=== PATIENT | female | born 2000 | race Caucasian/White ===

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

== ENCOUNTER 2022-01-19 17:14 | Emergency (ER) | payer OTHER ==
[2022-01-19 17:32] VITALS: RESP 18; BMI 32.9
[2022-01-19] MEDS ORDERED: SODIUM CHLORIDE 1,000 ML IV STA (18:29)
[2022-01-19] MEDS ORDERED: ONDANSETRON 4 MG/2 ML VIAL IVPUSH ONE (18:29)
[2022-01-19] MEDS ORDERED: morphine CARPU-JECT 4 MG/1 ML DISP.SYRIN IVPUSH ONE ×2 (18:29→23:16)
[2022-01-19] MEDS ORDERED: morphine SULFATE 4 MG/ML VIAL ONE (18:35)
[2022-01-19] MEDS ORDERED: ONDANSETRON 4 MG/2 ML VIAL ONE (18:35)
[2022-01-19 19:19] LABS: EPI CELLS >36 /uL (0-25.1); HCG,QUALITATIVE URINE Negative; HYALINE CASTS 1 /uL (0-3.1); URINE APPEARANCE CLEAR; URINE BACTERIA 514 /uL (0-1359); URINE BILIRUBIN NEGATIVE (NEGATIVE); URINE COLOR YELLOW; URINE GLUCOSE (UA) NEGATIVE (NEGATIVE); URINE KETONE NEGATIVE (NEGATIVE); URINE LEUK ESTERASE 1+ (NEGATIVE); URINE NITRITE NEGATIVE (NEGATIVE); URINE PROTEIN TRACE (NEGATIVE); URINE RBC 63 /uL (0-23.9); URINE UROBILINOGEN 0.2 mg/dL (0.2-1.0); URINE WBC 26 /uL (0-25.8)
[2022-01-19 19:40] LABS: BASO % 0.7 % (0-2.0); EOS % 4.9 % (0-4.5); HEMATOCRIT 38.1 % (32.4-45.2); HEMOGLOBIN 12.2 GM/dL (10.7-15.3); LYMPH % 22.8 % (8-40); MCH 27.2 pg (25.7-33.7); MCHC 32.1 g/dl (32.0-36.0); MEAN CELL VOLUME 84.8 fl (80-96); MEAN PLT VOLUME 8.5 fl (7.5-11.1); MONO % 4.5 % (3.8-10.2); NEUT % 67.1 % (42.8-82.8); PLATELET COUNT 390 10^3/uL (134-434); RBC 4.49 M/mm3 (3.60-5.2); RDW 15.8 % (11.6-15.6); WHITE BLOOD COUNT 7.8 K/mm3 (4.0-10.0)
[2022-01-19 20:12] VITALS: BP 117/74; PULSE 114; TEMP 98.4
[2022-01-19 20:32] LABS: ALBUMIN 3.6 g/dl (3.4-5.0); BLOOD UREA NITROGEN 8.7 mg/dL (7-18)
[2022-01-19 20:35] LABS: CREATININE 0.8 mg/dL (0.55-1.3)
[2022-01-19 20:37] LABS: BILIRUBIN,TOTAL 0.2 mg/dL (0.2-1); TOT PROT 7.2 g/dl (6.4-8.2)
[2022-01-19] MEDS ORDERED: KETOROLAC TROMETHAMINE 15 MG/ML VIAL ONE (22:05)
[2022-01-19] MEDS ORDERED: KETOROLAC TROMETHAMINE 30 MG/1 ML VIAL IVPUSH ONE (22:05)
[2022-01-19] MEDS ORDERED: ALBUTEROL SO4 HFA INHALER IH ONE ×2 (23:20→23:23)
[2022-01-20] MEDS ORDERED: LIDOCAINE VISCOUS 2% ORAL/TOP 15 ML UNIT-DOSE CUP ONE (00:57)
[2022-01-20] MEDS ORDERED: LIDOCAINE VISCOUS 2% ORAL/TOP 15 ML UNIT-DOSE CUP MM ONE (00:57)
[2022-01-20] MEDS ORDERED: ACETAMINOPHEN 1000 MG/100 ML BAG IVPB ONE (01:33)
[2022-01-20] MEDS ORDERED: ACETAMINOPHEN INJECTION 100 ML IVPB ONE (01:33)
[2022-01-20] MEDS ORDERED: DOXYCYCLINE HYCLATE 100 MG CAPSULE PO ONE ×2 (02:52→03:12)
[2022-01-20] MEDS ORDERED: metroNIDAZOLE 250 MG TABLET PO ONE (02:53)
[2022-01-20] MEDS ORDERED: metroNIDAZOLE 250 MG TABLET ONE (03:12)
[2022-01-20] MEDS ORDERED: cefTRIAXone SODIUM 1 GM VIAL ONE (03:12)
[2022-01-20] MEDS ORDERED: LIDOCAINE HCL/PF 1% SDV 5ML VIAL ONE (03:12)
== END 2022-01-20 04:10 | disposition home or self-care (01) ==
LOC: JER 17:14
PROC: 3E0333Z Introduction of Anti-inflammatory into Peripheral Vein, Percutaneous Approach (ICD-10-PCS; principal; 2022-01-19)
PROC: 3E0333Z Introduction of Anti-inflammatory into Peripheral Vein, Percutaneous Approach (ICD-10-PCS; 2022-01-19)
PROC: 3E033NZ Introduction of Analgesics, Hypnotics, Sedatives into Peripheral Vein, Percutaneous Approach (ICD-10-PCS; 2022-01-19)
PROC: 3E033NZ Introduction of Analgesics, Hypnotics, Sedatives into Peripheral Vein, Percutaneous Approach (ICD-10-PCS; 2022-01-19)
PROC: 3E0337Z Introduction of Electrolytic and Water Balance Substance into Peripheral Vein, Percutaneous Approach (ICD-10-PCS; 2022-01-19)
PROC: 3E02329 Introduction of Other Anti-infective into Muscle, Percutaneous Approach (ICD-10-PCS; 2022-01-19)
DX: R10.2 Pelvic and perineal pain (principal)
CPT/HCPCS: 36415; 74177-TC; 76830-TC; 80053; 81003; 84703; 85025; 86850; 86900; 86901; 87086; 87491; 87591; 99285-25; Q9967

== ENCOUNTER 2022-04-11 03:41 | Inpatient (IN) | payer OTHER ==
[2022-04-11] MEDS: ALBUTEROL SO4 2.5/IPRATROPIUM 0.5 INH SOL 3 ML VIAL.NEB. NEB SCH ×2 (03:45→19:59)
[2022-04-11] MEDS ORDERED: ALBUTEROL SO4 0.083% IH SOL 2.5 MG/3 ML VIAL.NEB. NEB ONE ×5 (03:51→18:51)
[2022-04-11] MEDS ORDERED: MAGNESIUM SULF 50% (8.12 MEQ/2 ML-1 GM VIAL) IVPB ONE (03:51)
[2022-04-11] MEDS ORDERED: RACEPINEPHRINE IH SOL 2.25% 11.25 MG/0.5 ML VIAL IH ONE (03:52)
[2022-04-11 04:12] LABS: VENOUS BASE EXCESS -2.4 mmol/L (-2-2); VENOUS O2 SATURATION 77.1 % (70-80); VENOUS PCO2 44.6 mmHg (38-52); VENOUS PH 7.339 (7.310-7.410)
[2022-04-11 04:15] LABS: BASO % 0.8 % (0-2.0); EOS % 14.3 % (0-4.5); HEMATOCRIT 40.8 % (32.4-45.2); HEMOGLOBIN 13.1 GM/dL (10.7-15.3); LYMPH % 42.2 % (8-40); MCHC 32.2 g/dl (32.0-36.0); MEAN CELL VOLUME 83.9 fl (80-96); MEAN PLT VOLUME 7.9 fl (7.5-11.1); MONO % 5.9 % (3.8-10.2); NEUT % 36.8 % (42.8-82.8); PLATELET COUNT 419 10^3/uL (134-434); RBC 4.87 M/mm3 (3.60-5.2); RDW 16.1 % (11.6-15.6); WHITE BLOOD COUNT 10.9 K/mm3 (4.0-10.0)
[2022-04-11 04:22] LABS: INR 0.96 (0.83-1.09)
[2022-04-11 04:25] LABS: ACTIVATED PTT 34.1 SECONDS (25.2-36.5)
[2022-04-11 04:27] LABS: ALBUMIN 3.6 g/dl (3.4-5.0); CALCIUM 9.4 mg/dL (8.5-10.1)
[2022-04-11 04:28] LABS: BLOOD UREA NITROGEN 8.7 mg/dL (7-18)
[2022-04-11 04:30] LABS: CREATININE 0.8 mg/dL (0.55-1.3)
[2022-04-11 04:33] LABS: BILIRUBIN,TOTAL 0.2 mg/dL (0.2-1); TOT PROT 7.2 g/dl (6.4-8.2)
[2022-04-11] MEDS ORDERED: ACETAMINOPHEN 1000 MG/100 ML BAG IVPB ONE ×2 (04:34→21:22)
[2022-04-11] MEDS ORDERED: ALBUTEROL SO4 HFA INHALER IH PRN ×2 (09:10→19:45)
[2022-04-11] MEDS ORDERED: MAGNESIUM OXIDE 400 MG TABLET (FP) ONE (10:22)
[2022-04-11] MEDS ORDERED: ENOXAPARIN NA (PORCINE) 40 MG/0.4 ML DISP.SYRIN SQ ONE (10:23)
[2022-04-11] MEDS ORDERED: KETOROLAC TROMETHAMINE 15 MG/ML VIAL ONE ×2 (10:23→19:25)
[2022-04-11] MEDS: ENOXAPARIN NA (PORCINE) 40 MG/0.4 ML DISP.SYRIN SQ SCH (10:32)
[2022-04-11] MEDS: MAGNESIUM OXIDE 400 MG TABLET (FP) PO SCH (10:32)
[2022-04-11] MEDS: KETOROLAC TROMETHAMINE 15 MG/ML VIAL IVPUSH PRN ×2 (10:32→19:27)
[2022-04-11] MEDS: BUDESONIDE/FORMETEROL FUMARATE 80/4.5 mcg INHALER IH SCH (13:00)
[2022-04-11] MEDS: ALBUTEROL SO4 0.083% IH SOL 2.5 MG/3 ML VIAL.NEB. NEB PRN ×2 (14:42→19:05)
[2022-04-11] MEDS ORDERED: predniSONE 20 MG TABLET (UD) PO SCH (16:15)
[2022-04-11] MEDS ORDERED: RACEPINEPHRINE IH SOL 2.25% 11.25 MG/0.5 ML VIAL NEB ONE ×2 (19:34→19:55)
[2022-04-11] MEDS ORDERED: ALBUTEROL SO4 2.5/IPRATROPIUM 0.5 INH SOL 3 ML VIAL.NEB. NEB ONE (19:54)
[2022-04-11] MEDS ORDERED: RAPID SEQUENCE INTUBATION KIT NR ONE (20:08)
[2022-04-11] MEDS ORDERED: TERBUTALINE SULFATE 1 MG/1 ML VIAL SQ ONE ×2 (20:09)
[2022-04-11] MEDS ORDERED: MAGNESIUM SULFATE IN WATER 2 GM/50 ML IVPB IVPB ONE (20:12)
[2022-04-11] MEDS ORDERED: methylPREDNISolone NA SUCC 40 MG/1 ML VIAL ONE (20:17)
[2022-04-11] MEDS ORDERED: methylPREDNISolone NA SUCC 40 MG/1 ML VIAL IVPUSH ONE (20:18)
[2022-04-11] MEDS ORDERED: LORazepam 2 MG/ML SDV VIAL IVPUSH ONE (20:19)
[2022-04-11] MEDS ORDERED: ONDANSETRON 4 MG/2 ML VIAL ONE (21:20)
[2022-04-11] MEDS ORDERED: ONDANSETRON 4 MG/2 ML VIAL IVPUSH ONE (21:21)
[2022-04-11] MEDS ORDERED: ACETAMINOPHEN INJECTION 100 ML IVPB ONE (21:30)
[2022-04-11] MEDS ORDERED: MONTELUKAST NA 10 MG TABLET PO SCH (22:00)
[2022-04-11 22:21] LABS: ARTERIAL BLD GAS O2 SATURATION 98.9 % (95-98); ARTERIAL BLOOD GAS BASE EXCESS -4.7 mmol/L (-2-2); ARTERIAL BLOOD GAS PO2 164.4 mmHg (80-100)
[2022-04-11 22:23] LABS: ALLENS TEST POSITIVE; VENT MODE PSU; VENT RATE 12
[2022-04-12 07:03] LABS: ARTERIAL BLD GAS O2 SATURATION 97.8 % (95-98); ARTERIAL BLOOD GAS BASE EXCESS -1.6 mmol/L (-2-2); ARTERIAL BLOOD GAS PO2 106.8 mmHg (80-100); ARTERIAL BLOOD GAS pH 7.374 (7.350-7.450)
[2022-04-12 07:04] LABS: ALLENS TEST POSITIVE
[2022-04-12 07:05] LABS: VENT MODE PSV; VENT RATE 12
[2022-04-12] MEDS: MAGNESIUM OXIDE 400 MG TABLET (FP) PO SCH ×3 (07:07→21:41)
[2022-04-12] MEDS: ALBUTEROL SO4 2.5/IPRATROPIUM 0.5 INH SOL 3 ML VIAL.NEB. NEB SCH ×6 (07:15→19:46)
[2022-04-12] MEDS ORDERED: ALBUTEROL SO4 2.5/IPRATROPIUM 0.5 INH SOL 3 ML VIAL.NEB. NEB ONE (07:26)
[2022-04-12] MEDS ORDERED: ALBUTEROL SO4 0.083% IH SOL 2.5 MG/3 ML VIAL.NEB. NEB ONE ×2 (07:27→10:45)
[2022-04-12] MEDS: ALBUTEROL SO4 0.083% IH SOL 2.5 MG/3 ML VIAL.NEB. NEB PRN (07:48)
[2022-04-12] MEDS ORDERED: LORazepam 2 MG/ML SDV VIAL IVPUSH ONE ×2 (07:53→12:00)
[2022-04-12] MEDS ORDERED: MAGNESIUM SULFATE IN WATER 2 GM/50 ML IVPB IVPB ONE (08:00)
[2022-04-12] MEDS ORDERED: KETOROLAC TROMETHAMINE 15 MG/ML VIAL IVPUSH ONE (08:01)
[2022-04-12] MEDS ORDERED: MAGNESIUM SULF 50% (8.12 MEQ/2 ML-1 GM VIAL) IVPB ONE (08:01)
[2022-04-12] MEDS ORDERED: KETOROLAC TROMETHAMINE 15 MG/ML VIAL ONE (08:01)
[2022-04-12 08:58] LABS: BASO % 0.3 % (0-2.0); HEMATOCRIT 36.1 % (32.4-45.2); HEMOGLOBIN 11.4 GM/dL (10.7-15.3); LYMPH % 7.8 % (8-40); MCH 26.7 pg (25.7-33.7); MCHC 31.7 g/dl (32.0-36.0); MEAN CELL VOLUME 84.4 fl (80-96); MONO % 3.2 % (3.8-10.2); NEUT % 88.7 % (42.8-82.8); PLATELET COUNT 385 10^3/uL (134-434); RBC 4.27 M/mm3 (3.60-5.2); RDW 16.5 % (11.6-15.6); WHITE BLOOD COUNT 19.4 K/mm3 (4.0-10.0)
[2022-04-12] MEDS ORDERED: ALBUTEROL SO4 HFA INHALER IH SCH (09:15)
[2022-04-12 09:26] LABS: ALBUMIN 3.6 g/dl (3.4-5.0)
[2022-04-12 09:32] LABS: BILIRUBIN,TOTAL 0.6 mg/dL (0.2-1); TOT PROT 6.9 g/dl (6.4-8.2)
[2022-04-12 09:33] LABS: PHOSPHOROUS 5.8 mg/dL (2.5-4.9)
[2022-04-12] MEDS ORDERED: methylPREDNISolone NA SUCC 40 MG/1 ML VIAL IVPUSH SCH ×2 (10:00)
[2022-04-12] MEDS ORDERED: ACETAMINOPHEN 1000 MG/100 ML BAG IVPB PRN ×2 (10:31→20:21)
[2022-04-12] MEDS ORDERED: LORazepam 0.5 MG TABLET PO PRN ×2 (10:36→20:21)
[2022-04-12] MEDS: ENOXAPARIN NA (PORCINE) 40 MG/0.4 ML DISP.SYRIN SQ SCH (11:15)
[2022-04-12] MEDS: methylPREDNISolone NA SUCC 40 MG/1 ML VIAL IVPUSH SCH ×3 (12:00→21:40)
[2022-04-12] MEDS ORDERED: KETAMINE HCL 500 MG/10 ML VIAL ONE (12:14)
[2022-04-12] MEDS ORDERED: ROCURONIUM BROMIDE 50 MG/5 ML SYRINGE ONE (12:14)
[2022-04-12] MEDS ORDERED: methylPREDNISolone NA SUCC 40 MG/1 ML VIAL ONE (12:17)
[2022-04-12] MEDS: BUDESONIDE/FORMETEROL FUMARATE 80/4.5 mcg INHALER IH SCH ×2 (12:28→13:10)
[2022-04-12] MEDS ORDERED: CEFTRIAXONE 1 GM in DEXTROSE 5%-WATER - 100 ML IVPB ONE (13:02)
[2022-04-12] MEDS ORDERED: AZITHROMYCIN IVPB 500 MG in DEXTROSE 5%-WATER - 250 ML IVPB ONE (13:02)
[2022-04-12] MEDS: PROPOFOL 1,000,000 MCG/100 ML VIAL IVPB SCH (13:09)
[2022-04-12] MEDS ORDERED: CEFTRIAXONE 1 GM/50 ML BAG ONE (13:10)
[2022-04-12] MEDS ORDERED: AZITHROMYCIN IVPB 500 MG/250 ML BAG IVPB ONE (13:10)
[2022-04-12 13:35] LABS: ARTERIAL BLD GAS O2 SATURATION 99.6 % (95-98); ARTERIAL BLOOD GAS BASE EXCESS -2.4 mmol/L (-2-2); ARTERIAL BLOOD GAS PO2 271.8 mmHg (80-100); ARTERIAL BLOOD GAS pH 7.298 (7.350-7.450)
[2022-04-12] MEDS ORDERED: LEVALBUTEROL HCL 0.63 MG/3 ML VIAL.NEB. IH SCH (14:00)
[2022-04-12] MEDS ORDERED: MIDAZOLAM HCL 5 MG/1 ML Single Dose Vial IVPUSH ONE (14:04)
[2022-04-12] MEDS ORDERED: MIDAZOLAM HCL 5 MG/1 ML Single Dose Vial ONE ×3 (14:09→14:16)
[2022-04-12] MEDS ORDERED: MIDAZOLAM IN 0.9 % SOD.CHLORID 1 MG/1 ML PLAST..BAG ONE (14:10)
[2022-04-12] MEDS ORDERED: MIDAZOLAM 100 MG in SODIUM CHLORIDE 100 ML IVPB SCH (14:15)
[2022-04-12 17:16] LABS: ARTERIAL BLD GAS O2 SATURATION 98.9 % (95-98); ARTERIAL BLOOD GAS BASE EXCESS -1.3 mmol/L (-2-2); ARTERIAL BLOOD GAS PO2 152.8 mmHg (80-100); ARTERIAL BLOOD GAS pH 7.382 (7.350-7.450)
[2022-04-12 17:19] LABS: ALLENS TEST POSITIVE
[2022-04-12 17:20] LABS: VENT MODE A/C; VENT RATE 20
[2022-04-12] MEDS ORDERED: PROPOFOL 1,000,000 MCG/100 ML VIAL ONE (17:29)
[2022-04-12] MEDS: FENTANYL NS IVPB 500 MCG/100 ML BAG IVPB SCH (18:36)
[2022-04-12] MEDS: MIDAZOLAM IN 0.9 % SOD.CHLORID 100 MG/100 ML PLAST..BAG IVPB SCH (18:37)
[2022-04-12 18:47] LABS: URINE APPEARANCE CLOUDY; URINE COLOR YELLOW
[2022-04-12 18:48] LABS: PH,URINE 5.5 (5.0-8.0); URINE BILIRUBIN NEGATIVE (NEGATIVE); URINE GLUCOSE (UA) NEGATIVE (NEGATIVE); URINE KETONE NEGATIVE (NEGATIVE)
[2022-04-12 18:49] LABS: URINE NITRITE NEGATIVE (NEGATIVE); URINE PROTEIN 1+ (NEGATIVE); URINE RBC 525 /uL (0-23.9); URINE UROBILINOGEN 0.2 mg/dL (0.2-1.0); URINE WBC 29 /uL (0-25.8)
[2022-04-12 18:50] LABS: EPI CELLS 14 /uL (0-25.1); HYALINE CASTS 1 /uL (0-3.1); URINE BACTERIA 3 /uL (0-1359); URINE LEUK ESTERASE NEGATIVE (NEGATIVE)
[2022-04-12 20:21] VITALS: BMI 30.3
[2022-04-12] MEDS: MUPIROCIN 2% TOPICAL OINTMENT FOR DECOLONIZATION NS SCH (21:41)
[2022-04-12] MEDS: CHLORHEXIDINE GLUCONATE 4% CLEANSER FOR DECOLONIZATION TP SCH (21:41)
[2022-04-12] MEDS: MONTELUKAST NA 10 MG TABLET PO SCH (21:42)
[2022-04-12] MEDS ORDERED: BUDESONIDE/FORMETEROL FUMARATE 80/4.5 mcg INHALER IH SCH (22:00)
[2022-04-13] MEDS: PROPOFOL 1,000,000 MCG/100 ML VIAL IVPB SCH (02:56)
[2022-04-13] MEDS: methylPREDNISolone NA SUCC 40 MG/1 ML VIAL IVPUSH SCH ×4 (02:57→21:18)
[2022-04-13 06:14] LABS: ARTERIAL BLD GAS O2 SATURATION 96.6 % (95-98); ARTERIAL BLOOD GAS BASE EXCESS -0.8 mmol/L (-2-2); ARTERIAL BLOOD GAS PO2 84.1 mmHg (80-100); ARTERIAL BLOOD GAS pH 7.425 (7.350-7.450)
[2022-04-13 06:15] LABS: ALLENS TEST POSITIVE
[2022-04-13 06:16] LABS: VENT MODE A/C; VENT RATE 20
[2022-04-13] MEDS: MIDAZOLAM IN 0.9 % SOD.CHLORID 100 MG/100 ML PLAST..BAG IVPB SCH (06:51)
[2022-04-13] MEDS: FENTANYL NS IVPB 500 MCG/100 ML BAG IVPB SCH (06:52)
[2022-04-13] MEDS: ALBUTEROL SO4 2.5/IPRATROPIUM 0.5 INH SOL 3 ML VIAL.NEB. NEB SCH ×4 (07:45→20:31)
[2022-04-13] MEDS ORDERED: ALBUTEROL SO4 2.5/IPRATROPIUM 0.5 INH SOL 3 ML VIAL.NEB. NEB SCH (08:00)
[2022-04-13] MEDS ORDERED: LEVALBUTEROL HCL 0.63 MG/3 ML VIAL.NEB. IH SCH (08:00)
[2022-04-13 08:56] LABS: BASO % 0.1 % (0-2.0); HEMATOCRIT 32.7 % (32.4-45.2); HEMOGLOBIN 10.4 GM/dL (10.7-15.3); LYMPH % 9.5 % (8-40); MCH 26.7 pg (25.7-33.7); MCHC 31.8 g/dl (32.0-36.0); MEAN CELL VOLUME 84.1 fl (80-96); MEAN PLT VOLUME 8.3 fl (7.5-11.1); MONO % 1.1 % (3.8-10.2); NEUT % 89.3 % (42.8-82.8); PLATELET COUNT 323 10^3/uL (134-434); RBC 3.89 M/mm3 (3.60-5.2); RDW 16.3 % (11.6-15.6); WHITE BLOOD COUNT 10.7 K/mm3 (4.0-10.0)
[2022-04-13 09:13] LABS: ALBUMIN 3.2 g/dl (3.4-5.0); BLOOD UREA NITROGEN 21.8 mg/dL (7-18); CALCIUM 8.9 mg/dL (8.5-10.1); MAGNESIUM 2.6 mg/dL (1.8-2.4)
[2022-04-13 09:17] LABS: CREATININE 0.8 mg/dL (0.55-1.3); PHOSPHOROUS 3.4 mg/dL (2.5-4.9)
[2022-04-13 09:19] LABS: BILIRUBIN,TOTAL 0.4 mg/dL (0.2-1)
[2022-04-13] MEDS: DEXMEDETOMIDINE PREMIX 400 MCG/100 ML BAG IVPB SCH ×2 (09:56→22:00)
[2022-04-13] MEDS: ENOXAPARIN NA (PORCINE) 40 MG/0.4 ML DISP.SYRIN SQ SCH (09:57)
[2022-04-13] MEDS: MUPIROCIN 2% TOPICAL OINTMENT FOR DECOLONIZATION NS SCH ×2 (10:02→21:19)
[2022-04-13] MEDS: AZITHROMYCIN IVPB 500 MG/250 ML BAG IVPB SCH (10:04)
[2022-04-13] MEDS: MAGNESIUM OXIDE 400 MG TABLET (FP) PO SCH ×2 (10:04→21:19)
[2022-04-13] MEDS: CEFTRIAXONE 1 GM in DEXTROSE 5%-WATER - 50 ML IVPB SCH (10:04)
[2022-04-13] MEDS ORDERED: ALBUTEROL SO4 0.083% IH SOL 2.5 MG/3 ML VIAL.NEB. NEB STA ×2 (11:41→11:43)
[2022-04-13] MEDS: MONTELUKAST NA 10 MG TABLET PO SCH (21:19)
[2022-04-13] MEDS: CHLORHEXIDINE GLUCONATE 4% CLEANSER FOR DECOLONIZATION TP SCH (21:19)
[2022-04-14] MEDS ORDERED: ACETAMINOPHEN 1000 MG/100 ML BAG IVPB ONE (00:43)
[2022-04-14] MEDS: methylPREDNISolone NA SUCC 40 MG/1 ML VIAL IVPUSH SCH ×4 (02:45→21:12)
[2022-04-14] MEDS: ALBUTEROL SO4 0.083% IH SOL 2.5 MG/3 ML VIAL.NEB. NEB PRN ×4 (03:11→17:30)
[2022-04-14] MEDS: ALBUTEROL SO4 2.5/IPRATROPIUM 0.5 INH SOL 3 ML VIAL.NEB. NEB SCH ×5 (07:10→20:05)
[2022-04-14] MEDS: CEFTRIAXONE 1 GM in DEXTROSE 5%-WATER - 50 ML IVPB SCH (09:04)
[2022-04-14] MEDS: MUPIROCIN 2% TOPICAL OINTMENT FOR DECOLONIZATION NS SCH ×2 (09:04→21:13)
[2022-04-14] MEDS ORDERED: ACETAMINOPHEN 1000 MG/100 ML BAG IVPB STA (09:10)
[2022-04-14] MEDS: ENOXAPARIN NA (PORCINE) 40 MG/0.4 ML DISP.SYRIN SQ SCH (10:05)
[2022-04-14] MEDS: AZITHROMYCIN IVPB 500 MG/250 ML BAG IVPB SCH (10:06)
[2022-04-14] MEDS: MAGNESIUM OXIDE 400 MG TABLET (FP) PO SCH ×2 (10:06→21:13)
[2022-04-14] MEDS: LORazepam 2 MG/ML SDV VIAL IVPUSH PRN ×3 (13:30→22:08)
[2022-04-14] MEDS ORDERED: LORazepam 2 MG/ML SDV VIAL IVPUSH STA (19:28)
[2022-04-14] MEDS ORDERED: guaiFENesin/CODEINE 10 ML UNIT-DOSE CUPS PO PRN (19:29)
[2022-04-14] MEDS ORDERED: DEXMEDETOMIDINE PREMIX 400 MCG/100 ML BAG IVPB ONE (19:39)
[2022-04-14] MEDS: DEXMEDETOMIDINE PREMIX 400 MCG/100 ML BAG IVPB SCH (20:12)
[2022-04-14] MEDS: CHLORHEXIDINE GLUCONATE 4% CLEANSER FOR DECOLONIZATION TP SCH (21:13)
[2022-04-14] MEDS: MONTELUKAST NA 10 MG TABLET PO SCH (21:13)
[2022-04-15] MEDS: methylPREDNISolone NA SUCC 40 MG/1 ML VIAL IVPUSH SCH ×4 (02:59→22:22)
[2022-04-15] MEDS: LORazepam 2 MG/ML SDV VIAL IVPUSH PRN ×2 (06:13→10:42)
[2022-04-15] MEDS: ALBUTEROL SO4 0.083% IH SOL 2.5 MG/3 ML VIAL.NEB. NEB PRN (06:20)
[2022-04-15 07:47] LABS: HEMATOCRIT 35.1 % (32.4-45.2); HEMOGLOBIN 11.3 GM/dL (10.7-15.3); MCH 27.1 pg (25.7-33.7); MCHC 32.3 g/dl (32.0-36.0); MEAN PLT VOLUME 8.2 fl (7.5-11.1); PLATELET COUNT 319 10^3/uL (134-434); RBC 4.18 M/mm3 (3.60-5.2); RDW 16.2 % (11.6-15.6); WHITE BLOOD COUNT 11.1 K/mm3 (4.0-10.0)
[2022-04-15] MEDS: ALBUTEROL SO4 2.5/IPRATROPIUM 0.5 INH SOL 3 ML VIAL.NEB. NEB SCH ×4 (07:50→21:06)
[2022-04-15 08:18] LABS: CALCIUM 8.8 mg/dL (8.5-10.1)
[2022-04-15 08:19] LABS: BLOOD UREA NITROGEN 19.1 mg/dL (7-18); MAGNESIUM 2.3 mg/dL (1.8-2.4)
[2022-04-15 08:22] LABS: CREATININE 0.6 mg/dL (0.55-1.3); PHOSPHOROUS 3.5 mg/dL (2.5-4.9)
[2022-04-15] MEDS: CEFTRIAXONE 1 GM in DEXTROSE 5%-WATER - 50 ML IVPB SCH (09:04)
[2022-04-15] MEDS: ENOXAPARIN NA (PORCINE) 40 MG/0.4 ML DISP.SYRIN SQ SCH (09:05)
[2022-04-15] MEDS: MAGNESIUM OXIDE 400 MG TABLET (FP) PO SCH ×2 (09:05→22:22)
[2022-04-15] MEDS: MUPIROCIN 2% TOPICAL OINTMENT FOR DECOLONIZATION NS SCH (10:11)
[2022-04-15] MEDS: AZITHROMYCIN IVPB 500 MG/250 ML BAG IVPB SCH (10:13)
[2022-04-15] MEDS: BUDESONIDE/FORMETEROL FUMARATE 80/4.5 mcg INHALER IH SCH (11:10)
[2022-04-15] MEDS ORDERED: guaiFENesin/CODEINE 10 ML UNIT-DOSE CUPS PO PRN (20:37)
[2022-04-15] MEDS ORDERED: DEXMEDETOMIDINE PREMIX 400 MCG/100 ML BAG IVPB SCH (20:37)
[2022-04-15] MEDS ORDERED: ALBUTEROL SO4 0.083% IH SOL 2.5 MG/3 ML VIAL.NEB. NEB PRN (20:37)
[2022-04-15] MEDS ORDERED: CHLORHEXIDINE GLUCONATE 4% CLEANSER FOR DECOLONIZATION TP SCH (22:00)
[2022-04-15] MEDS ORDERED: MUPIROCIN 2% TOPICAL OINTMENT FOR DECOLONIZATION NS SCH (22:00)
[2022-04-15] MEDS: MONTELUKAST NA 10 MG TABLET PO SCH (22:22)
[2022-04-15] MEDS ORDERED: ACETAMINOPHEN/CAFFEINE/BUTALBITAL 1 TAB PO ONE (22:40)
[2022-04-15] MEDS: DEXMEDETOMIDINE PREMIX 400 MCG/100 ML BAG IVPB SCH (23:35)
[2022-04-16] MEDS ORDERED: ACETAMINOPHEN/CAFFEINE/BUTALBITAL 1 TAB PO ONE (00:30)
[2022-04-16] MEDS: BUDESONIDE/FORMETEROL FUMARATE 80/4.5 mcg INHALER IH SCH ×3 (00:43→21:40)
[2022-04-16] MEDS ORDERED: ACETAMINOPHEN 1000 MG/100 ML BAG IVPB ONE (02:52)
[2022-04-16] MEDS: methylPREDNISolone NA SUCC 40 MG/1 ML VIAL IVPUSH SCH ×3 (03:20→21:39)
[2022-04-16] MEDS ORDERED: SUMAtriptan SUCCINATE 50 MG TABLET PO ONE (03:30)
[2022-04-16] MEDS: ALBUTEROL SO4 2.5/IPRATROPIUM 0.5 INH SOL 3 ML VIAL.NEB. NEB SCH ×4 (08:56→20:05)
[2022-04-16] MEDS: ENOXAPARIN NA (PORCINE) 40 MG/0.4 ML DISP.SYRIN SQ SCH (10:13)
[2022-04-16] MEDS: ACETAMINOPHEN 1000 MG/100 ML BAG IVPB PRN ×2 (10:14→15:53)
[2022-04-16] MEDS: MAGNESIUM OXIDE 400 MG TABLET (FP) PO SCH ×2 (10:16→21:39)
[2022-04-16] MEDS: CEFTRIAXONE 1 GM in DEXTROSE 5%-WATER - 50 ML IVPB SCH (13:36)
[2022-04-16] MEDS ORDERED: guaiFENesin 200 MG/10 ML 10 ML UNIT-DOSE CUPS PO PRN (14:14)
[2022-04-16] MEDS: AZITHROMYCIN IVPB 500 MG/250 ML BAG IVPB SCH ×2 (15:40→19:00)
[2022-04-16] MEDS ORDERED: ALPRAZolam 1 MG TABLET PO ONE (16:06)
[2022-04-16] MEDS ORDERED: AZITHROMYCIN 250 MG TABLET PO ONE ×2 (18:54→21:30)
[2022-04-16] MEDS: MONTELUKAST NA 10 MG TABLET PO SCH (21:39)
[2022-04-16] MEDS: BENZOCAINE/MENTHOL (CHLORASEPTIC ) LOZENGE MM PRN (22:55)
[2022-04-17] MEDS ORDERED: ACETAMINOPHEN 500 MG TABLET (FP) PO ONE (01:04)
[2022-04-17] MEDS: LORazepam 2 MG/ML SDV VIAL IVPUSH PRN ×2 (01:58→22:08)
[2022-04-17] MEDS: NYSTATIN 100,000 UNIT/GM TOPICAL CREAM 15 GM TUBE TP SCH ×4 (03:54→17:27)
[2022-04-17] MEDS: ALBUTEROL SO4 2.5/IPRATROPIUM 0.5 INH SOL 3 ML VIAL.NEB. NEB SCH ×4 (07:36→20:36)
[2022-04-17] MEDS: BUDESONIDE/FORMETEROL FUMARATE 80/4.5 mcg INHALER IH SCH ×2 (10:40→22:09)
[2022-04-17] MEDS: MAGNESIUM OXIDE 400 MG TABLET (FP) PO SCH ×2 (10:40→22:08)
[2022-04-17] MEDS: ENOXAPARIN NA (PORCINE) 40 MG/0.4 ML DISP.SYRIN SQ SCH (10:40)
[2022-04-17] MEDS: BENZOCAINE/MENTHOL (CHLORASEPTIC ) LOZENGE MM PRN (10:42)
[2022-04-17] MEDS ORDERED: KETOROLAC TROMETHAMINE 10 MG TABLET PO ONE (11:30)
[2022-04-17] MEDS: methylPREDNISolone NA SUCC 40 MG/1 ML VIAL IVPUSH SCH ×2 (12:14→22:08)
[2022-04-17] MEDS: CEFTRIAXONE 1 GM in DEXTROSE 5%-WATER - 50 ML IVPB SCH (12:14)
[2022-04-17] MEDS ORDERED: FLUCONAZOLE 150 MG TABLET PO ONE (13:54)
[2022-04-17] MEDS: ACETAMINOPHEN 1000 MG/100 ML BAG IVPB PRN ×2 (16:55→22:07)
[2022-04-17] MEDS: MICONAZOLE NITRATE 28 GM TUBE TP SCH ×2 (17:26→22:08)
[2022-04-17] MEDS: MONTELUKAST NA 10 MG TABLET PO SCH (22:08)
[2022-04-17 22:57] VITALS: RESP 20
[2022-04-18] MEDS: NYSTATIN 100,000 UNIT/GM TOPICAL CREAM 15 GM TUBE TP SCH ×3 (00:54→13:55)
[2022-04-18] MEDS: ACETAMINOPHEN 1000 MG/100 ML BAG IVPB PRN (05:12)
[2022-04-18] MEDS: LORazepam 2 MG/ML SDV VIAL IVPUSH PRN (05:12)
[2022-04-18] MEDS: BENZOCAINE/MENTHOL (CHLORASEPTIC ) LOZENGE MM PRN (06:23)
[2022-04-18 06:40] VITALS: PULSE 109
[2022-04-18] MEDS: ALBUTEROL SO4 2.5/IPRATROPIUM 0.5 INH SOL 3 ML VIAL.NEB. NEB SCH ×3 (08:16→15:48)
[2022-04-18] MEDS: BUDESONIDE/FORMETEROL FUMARATE 80/4.5 mcg INHALER IH SCH (09:57)
[2022-04-18] MEDS: CEFTRIAXONE 1 GM in DEXTROSE 5%-WATER - 50 ML IVPB SCH (09:58)
[2022-04-18] MEDS: MAGNESIUM OXIDE 400 MG TABLET (FP) PO SCH (09:58)
[2022-04-18] MEDS: methylPREDNISolone NA SUCC 40 MG/1 ML VIAL IVPUSH SCH (09:58)
[2022-04-18] MEDS: ENOXAPARIN NA (PORCINE) 40 MG/0.4 ML DISP.SYRIN SQ SCH (09:58)
[2022-04-18] MEDS: MICONAZOLE NITRATE 28 GM TUBE TP SCH (09:58)
[2022-04-18] MEDS ORDERED: SUMAtriptan SUCCINATE 25 MG TABLET PO ONE (12:57)
[2022-04-18 13:29] LABS: HIV INTERPRETATION NEGATIVE (NEGATIVE)
[2022-04-18 14:48] VITALS: BP 132/79; TEMP 98.6
[2022-04-18] MEDS ORDERED: TOPIRAMATE 25 MG TABLET PO SCH (22:00)
== END 2022-04-18 17:27 | disposition home or self-care (01) | DRG 133 ==
LOC: JER 03:41 → JERBED 05:44 → JICU 04-12 18:26 → J7W 04-15 20:30
PROVIDERS: ADMIT Internal Medicine; ATTEND Internal Medicine
PROC: 0BH17EZ Insertion of Endotracheal Airway into Trachea, Via Natural or Artificial Opening (ICD-10-PCS; principal; 2022-04-12)
PROC: 5A1945Z Respiratory Ventilation, 24-96 Consecutive Hours (ICD-10-PCS; 2022-04-12)
DX: J96.01 Acute respiratory failure with hypoxia (principal); J45.901 Unspecified asthma with (acute) exacerbation; G43.809 Other migraine, not intractable, without status migrainosus; K21.9 Gastro-esophageal reflux disease without esophagitis; J98.4 Other disorders of lung; J98.11 Atelectasis; D70.9 Neutropenia, unspecified; F41.8 Other specified anxiety disorders; N76.0 Acute vaginitis; Q33.2 Sequestration of lung
CPT/HCPCS: 0241U-QW; 36415; 36600; 70551-TC; 71045-TC-FY; 71275-TC; 80048; 80053; 81003; 82803; 82962; 83735; 84100; 84703; 85025; 85027; 85610; 85730; 87040; 87070; 87086; 87186; 87205; 87389; 87491; 87529; 87591; 87661; 87899; 93005; 93010; 94002; 94640; 94660; 99291; C9803-CS; Q9967; U0003; U0005

== ENCOUNTER 2022-09-02 07:27 | Emergency (ER) | payer OTHER ==
[2022-09-02] MEDS ORDERED: ALBUTEROL SO4 2.5/IPRATROPIUM 0.5 INH SOL 3 ML VIAL.NEB. NEB ONE (07:33)
[2022-09-02] MEDS ORDERED: MAGNESIUM SULF 50% (8.12 MEQ/2 ML-1 GM VIAL) IVPB ONE (07:41)
[2022-09-02] MEDS ORDERED: DEXAMETHASONE SOD PHOSPHATE 4 MG/1 ML VIAL IVPUSH ONE (07:41)
[2022-09-02] MEDS ORDERED: DEXAMETHASONE SOD PHOSPHATE 10 MG/1 ML VIAL ONE (07:44)
[2022-09-02] MEDS ORDERED: MAGNESIUM SULFATE IN WATER 2 GM/50 ML IVPB IVPB ONE (07:44)
[2022-09-02 08:02] VITALS: BMI 31.4
[2022-09-02 08:17] VITALS: TEMP 98.2
[2022-09-02 08:39] LABS: BASO % 0.5 % (0-2.0); EOS % 5.3 % (0-4.5); HEMATOCRIT 40.6 % (32.4-45.2); HEMOGLOBIN 13.5 GM/dL (10.7-15.3); LYMPH % 26.6 % (8-40); MCH 27.8 pg (25.7-33.7); MCHC 33.2 g/dl (32.0-36.0); MEAN CELL VOLUME 83.9 fl (80-96); MONO % 2.8 % (3.8-10.2); NEUT % 64.8 % (42.8-82.8); PLATELET COUNT 399 10^3/uL (134-434); RBC 4.84 M/mm3 (3.60-5.2); RDW 16.3 % (11.6-15.6); WHITE BLOOD COUNT 10.5 K/mm3 (4.0-10.0)
[2022-09-02] MEDS ORDERED: ACETAMINOPHEN 1000 MG/100 ML BAG IVPB ONE (08:41)
[2022-09-02] MEDS ORDERED: ACETAMINOPHEN INJECTION 100 ML IVPB ONE (08:41)
[2022-09-02] MEDS ORDERED: ALBUTEROL SO4 0.083% IH SOL 2.5 MG/3 ML VIAL.NEB. NEB ONE ×2 (08:41)
[2022-09-02 08:54] LABS: POTASSIUM 3.8 mmol/L (3.5-5.1)
[2022-09-02] MEDS ORDERED: EPINEPHrine 1:1,000 0.3 MG/0.3 ML SYR IM ONE (08:54)
[2022-09-02] MEDS ORDERED: EPINEPHrine/PF 1 MG/1 ML (1:1,000) AMPULE ONE (08:56)
[2022-09-02 08:57] LABS: ALBUMIN 3.7 g/dl (3.4-5.0); BLOOD UREA NITROGEN 7.6 mg/dL (7-18); CALCIUM 9.2 mg/dL (8.5-10.1)
[2022-09-02 09:01] LABS: CREATININE 0.7 mg/dL (0.55-1.3)
[2022-09-02 09:02] LABS: BILIRUBIN,TOTAL 0.3 mg/dL (0.2-1); TOT PROT 7.2 g/dl (6.4-8.2)
[2022-09-02 13:16] VITALS: BP 129/68; PULSE 123; RESP 22
== END 2022-09-02 13:27 | disposition admitted as inpatient to this hospital (09) ==
LOC: JER 07:27 → JERBED 09:54 → UNDOADMOB 09:54 → JER 13:27
PROC: 3E033NZ Introduction of Analgesics, Hypnotics, Sedatives into Peripheral Vein, Percutaneous Approach (ICD-10-PCS; principal; 2022-09-02)
PROC: 3E033GC Introduction of Other Therapeutic Substance into Peripheral Vein, Percutaneous Approach (ICD-10-PCS; 2022-09-02)
PROC: 3E033GC Introduction of Other Therapeutic Substance into Peripheral Vein, Percutaneous Approach (ICD-10-PCS; 2022-09-02)
PROC: 3E023GC Introduction of Other Therapeutic Substance into Muscle, Percutaneous Approach (ICD-10-PCS; 2022-09-02)
PROC: 3E0F7GC Introduction of Other Therapeutic Substance into Respiratory Tract, Via Natural or Artificial Opening (ICD-10-PCS; 2022-09-02)
DX: J45.901 Unspecified asthma with (acute) exacerbation (principal); Z20.822 Contact with and (suspected) exposure to COVID-19
CPT/HCPCS: 0241U-QW; 36415; 71045-TC-FY; 80053; 85025; 93005; 93010; 99285-25; J0171

== ENCOUNTER 2022-09-03 06:43 | Observation (INO) | payer OTHER ==
[2022-09-03] MEDS ORDERED: DEXAMETHASONE SOD PHOSPHATE 10 MG/1 ML VIAL IM ONE (06:48)
[2022-09-03] MEDS ORDERED: EPINEPHrine/PF 1 MG/1 ML (1:1,000) AMPULE ONE (07:12)
[2022-09-03] MEDS ORDERED: EPINEPHrine 1:1,000 0.3 MG/0.3 ML SYR IM ONE (07:12)
[2022-09-03] MEDS: ALBUTEROL SO4 2.5/IPRATROPIUM 0.5 INH SOL 3 ML VIAL.NEB. NEB SCH ×8 (07:14→23:25)
[2022-09-03] MEDS ORDERED: MAGNESIUM SULF 50% (8.12 MEQ/2 ML-1 GM VIAL) IVPB ONE (07:18)
[2022-09-03] MEDS ORDERED: MAGNESIUM 1GM/D5W - 1 GM/100 ML IVPB IVPB ONE (07:24)
[2022-09-03] MEDS ORDERED: ACETAMINOPHEN 1000 MG/100 ML BAG IVPB ONE ×2 (07:28→19:02)
[2022-09-03] MEDS ORDERED: ALBUTEROL SO4 2.5/IPRATROPIUM 0.5 INH SOL 3 ML VIAL.NEB. NEB ONE (07:29)
[2022-09-03] MEDS ORDERED: ACETAMINOPHEN INJECTION 100 ML IVPB ONE (07:36)
[2022-09-03] MEDS ORDERED: KETOROLAC TROMETHAMINE 15 MG/ML VIAL IVPUSH PRN (08:01)
[2022-09-03] MEDS ORDERED: ALBUTEROL SO4 0.083% IH SOL 2.5 MG/3 ML VIAL.NEB. NEB PRN ×2 (08:04→20:54)
[2022-09-03] MEDS ORDERED: KETOROLAC TROMETHAMINE 15 MG/ML VIAL ONE (09:34)
[2022-09-03] MEDS ORDERED: BUDESONIDE/FORMETEROL FUMARATE 160/4.5 mcg INHALER IH SCH (10:00)
[2022-09-03] MEDS ORDERED: ENOXAPARIN NA (PORCINE) 40 MG/0.4 ML DISP.SYRIN SQ SCH (10:00)
[2022-09-03 14:50] VITALS: BMI 31.1
[2022-09-03] MEDS ORDERED: RACEPINEPHRINE IH SOL 2.25% 11.25 MG/0.5 ML VIAL NEB ONE (19:00)
[2022-09-03] MEDS ORDERED: DEXAMETHASONE SOD PHOSPHATE 10 MG/1 ML VIAL IVPUSH ONE (19:01)
[2022-09-03] MEDS: KETOROLAC TROMETHAMINE 15 MG/ML VIAL IVPUSH PRN (21:34)
[2022-09-03 21:55] LABS: ALLENS TEST POSITIVE; ARTERIAL BLD GAS O2 SATURATION 97.6 % (95-98); ARTERIAL BLOOD GAS BASE EXCESS -1.5 mmol/L (-2-2); ARTERIAL BLOOD GAS PO2 99.6 mmHg (80-100); ARTERIAL BLOOD GAS pH 7.399 (7.350-7.450)
[2022-09-03] MEDS ORDERED: MONTELUKAST NA 10 MG TABLET PO SCH (22:00)
[2022-09-03] MEDS ORDERED: DEXAMETHASONE SOD PHOSPHATE 10 MG/1 ML VIAL IVPUSH SCH (22:00)
[2022-09-03] MEDS: DEXAMETHASONE SOD PHOSPHATE 10 MG/1 ML VIAL IVPUSH SCH (22:04)
[2022-09-03] MEDS: BUDESONIDE/FORMETEROL FUMARATE 160/4.5 mcg INHALER IH SCH (22:05)
[2022-09-04] MEDS: ALBUTEROL SO4 2.5/IPRATROPIUM 0.5 INH SOL 3 ML VIAL.NEB. NEB SCH ×4 (04:16→15:45)
[2022-09-04 05:55] VITALS: RESP 18
[2022-09-04 06:55] LABS: HEMATOCRIT 34.7 % (32.4-45.2); HEMOGLOBIN 11.8 GM/dL (10.7-15.3); LYMPH % 8.9 % (8-40); MCH 28.4 pg (25.7-33.7); MCHC 33.9 g/dl (32.0-36.0); MEAN CELL VOLUME 83.7 fl (80-96); MEAN PLT VOLUME 8.6 fl (7.5-11.1); MONO % 1.3 % (3.8-10.2); NEUT % 89.8 % (42.8-82.8); PLATELET COUNT 337 10^3/uL (134-434); RBC 4.14 M/mm3 (3.60-5.2); RDW 16.6 % (11.6-15.6); WHITE BLOOD COUNT 12.1 K/mm3 (4.0-10.0)
[2022-09-04 07:12] LABS: POTASSIUM 4.7 mmol/L (3.5-5.1)
[2022-09-04 07:14] LABS: CALCIUM 9.2 mg/dL (8.5-10.1)
[2022-09-04 07:15] LABS: ALBUMIN 3.3 g/dl (3.4-5.0); BLOOD UREA NITROGEN 17.2 mg/dL (7-18)
[2022-09-04 07:18] LABS: CREATININE 0.7 mg/dL (0.55-1.3); PHOSPHOROUS 3.6 mg/dL (2.5-4.9)
[2022-09-04 07:20] LABS: BILIRUBIN,TOTAL 0.3 mg/dL (0.2-1); TOT PROT 6.4 g/dl (6.4-8.2)
[2022-09-04] MEDS: BUDESONIDE/FORMETEROL FUMARATE 160/4.5 mcg INHALER IH SCH (09:12)
[2022-09-04] MEDS: DEXAMETHASONE SOD PHOSPHATE 10 MG/1 ML VIAL IVPUSH SCH (09:14)
[2022-09-04 09:20] LABS: ANISOCYTOSIS 0; HELMET CELLS 0; HOWELL-JOLLY BODIES 0; MACROCYTOSIS 0; OVALOCYTE 0; ROULEAU 0; SICKELED CELLS 0; TARGET CELLS 0; TEAR DROP CELLS 0; TOXIC GRANULATION 0
[2022-09-04] MEDS: KETOROLAC TROMETHAMINE 15 MG/ML VIAL IVPUSH PRN (09:25)
[2022-09-04] MEDS ORDERED: CYCLOBENZAPRINE HCL 5 MG TABLET PO PRN (09:52)
[2022-09-04] MEDS ORDERED: ENOXAPARIN NA (PORCINE) 40 MG/0.4 ML DISP.SYRIN SQ SCH ×2 (10:00)
[2022-09-04 14:41] VITALS: BP 122/65; PULSE 111; TEMP 97.7
== END 2022-09-04 18:05 | disposition home or self-care (01) ==
LOC: JER 06:43 → UNDOADMOB 07:18 → JERBED 07:18 → INTOOBSV 07:18 → JERBED 09:13 → J5S 11:19 → J4S 19:32
PROVIDERS: ADMIT Internal Medicine; ATTEND Internal Medicine
PROC: 3E033NZ Introduction of Analgesics, Hypnotics, Sedatives into Peripheral Vein, Percutaneous Approach (ICD-10-PCS; principal; 2022-09-03)
PROC: 3E0F7GC Introduction of Other Therapeutic Substance into Respiratory Tract, Via Natural or Artificial Opening (ICD-10-PCS; 2022-09-03)
PROC: 3E033GC Introduction of Other Therapeutic Substance into Peripheral Vein, Percutaneous Approach (ICD-10-PCS; 2022-09-03)
PROC: 3E023GC Introduction of Other Therapeutic Substance into Muscle, Percutaneous Approach (ICD-10-PCS; 2022-09-03)
DX: J45.909 Unspecified asthma, uncomplicated (principal); R06.02 Shortness of breath; R07.89 Other chest pain
CPT/HCPCS: 36415; 36600; 71045-TC-FY; 80053; 82785; 82803; 82962; 83735; 84100; 84484; 84703; 85025; 86682; 94010; 94640; 96372; 96374; 96375; 96376; 99285-25; G0378; J0171; J1100